=== PATIENT | female | born 1975 ===

== ENCOUNTER 2017-03-11 10:00 | Emergency (ER) | payer OTHER ==
[2017-03-11] MEDS ORDERED: DIPH,PERTUSS(ACELL),TET VAC/PF 0.5 ML VIAL IM ONE (10:49)
--- NOTE | 2017-03-11 11:19 | ER PHYSICIAN DOCUMENTATION ---
Physician Documentation [facility] Name:Kami Jon Age:42 yrs Sex:Female :1975 Arrival Date:03/11/2017 Time:10:00 BedRadiology Private MD: [place] Disposition: 03/11/17 11:07 Discharged to Home/Self Care. Impression: Foreign Body in Head. - Condition is Good. - Discharge Instructions: FOREIGN BODY, Soft Tissue [Not Removed]. - Medical Reconciliation form form. - Follow up: Private Physician; When: As needed; Reason: Continuance of care. - Problem is new. - Symptoms have improved. HPI: 03/11 11:49 This 42 yrs old Unknown Female presents to ER via Private Vehicle with complaints of jm Foreign Body - CHEEK. 11:49 The patient or guardian reports the patient has a suspected foreign body, L cheek. The jm reported likely foreign body is a fishhook. Onset: The symptom(s)/episode began/occurred just prior to arrival. Historical: - Allergies: No known drug Allergies; - Home Meds: 1. Xarelto 15 mg oral tab 1 tab twice a day for Deep Venous Thrombosis 2. Pepcid 20 mg oral tab 1 tab 2 times per day 3. acetaminophen 650 mg oral tab 1 tab every 6 hours for Pain - PMHx: DVT; - PSHx: Appendectomy; - Tetanus: > 10 years. - Ebola Screening: : Patient negative for fever greater than or equal to 101.5 degrees Fahrenheit, and additional compatible Ebola Virus Disease symptoms. Patient denies exposure to infectious person. Patient denies travel to an Ebola-affected area in the 21 days before illness onset. . - Immunization history: Flu Vaccine < 1 year. - Social history: Smoking status: Patient states was never smoker of tobacco. ROS: 11:49 Constitutional: Negative for fever. jm 11:49 Cardiovascular: Negative for chest pain, palpitations. 11:49 Skin: Positive for puncture. Exam: 11:49 Constitutional: The patient appears alert, awake. jm 11:49 Head/face: Noted is three hook fish hook in L cheek w 2 hooks inside. . Vital Signs: 10:10 BP 150 / 91; Pulse 101; Resp 16; Temp 98.4(TE); Pulse Ox 93% on R/A; Weight 58.06 kg; lp Height 5 ft. 3 in. (160.02 cm); Pain 0/10; 10:10 Body Mass Index 22.67 (58.06 kg, 160.02 cm) lp Procedures: 11:49 Foreign Body Removal: a fishhook, from the left left cheek, by using a hemostat, josué Dressing: bandiad, The patient tolerated the removal well, Only got one out. The other was left inside as it retracted in her cheek. MDM: 10:06 Patient medically screened. 11:49 Data reviewed: vital signs, nurses notes, radiologic studies, and as a result, I will jm discharge patient. Counseling: I had a detailed discussion with the patient and/or guardian regarding: the historical points, exam findings, and any diagnostic results supporting the discharge/admit diagnosis, the need for outpatient follow up, with the patient's primary care provider, an ENT specialist. Physician consultation: Dr. Levy regarding consult, States to leave in the hook and it will work its way out or she can get somebody to retrieve it at another time. . 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 Exp: 10/27/2018. Lot #: [id number]. } Route: IM; Site: left deltoid; 11:18 Follow up: Response: No adverse reaction; No change in condition lp Signatures: Celina Abel RN RN lp Meyer, John, MD MD jm
--- NOTE | 2017-03-11 11:19 | ER NURSING DOCUMENTATION ---
Nurse's Notes [facility] Name:Kami Jon Age:42 yrs Sex:Female :1975 Arrival Date:03/11/2017 Time:10:00 BedRadiology Private MD: Diagnosis:Foreign Body in Head Presentation: 03/11 10:08 Presenting complaint: Patient states: Fish hook in left cheek. Transition of care: Home.lp 10:08 Acuity: RADHA 4 lp 10:08 Method Of Arrival: Private Vehicle lp Triage Assessment: 10:32 General: Appears in no apparent distress, Behavior is appropriate for age. Pain: lp Complains of pain in left cheek. Derm: Skin has lesions on L cheek with fish hook. Historical: - Allergies: No known drug Allergies; - Home Meds: 1. Xarelto 15 mg oral tab 1 tab twice a day for Deep Venous Thrombosis 2. Pepcid 20 mg oral tab 1 tab 2 times per day 3. acetaminophen 650 mg oral tab 1 tab every 6 hours for Pain - PMHx: DVT; - PSHx: Appendectomy; - Tetanus: > 10 years. - Ebola Screening: : Patient negative for fever greater than or equal to 101.5 degrees Fahrenheit, and additional compatible Ebola Virus Disease symptoms. Patient denies exposure to infectious person. Patient denies travel to an Ebola-affected area in the 21 days before illness onset. . - Immunization history: Flu Vaccine < 1 year. - Social history: Smoking status: Patient states was never smoker of tobacco. Screenin:33 Infectious Disease Risk None. Abuse screen: Denies threats or abuse. Denies injuries lp from another. Nutritional screening: No deficits noted. Assessment: 10:32 See Triage Assessment done by same RN. lp Vital Signs: 10:10 BP 150 / 91; Pulse 101; Resp 16; Temp 98.4(TE); Pulse Ox 93% on R/A; Weight 58.06 kg; lp Height 5 ft. 3 in. (160.02 cm); Pain 0/10; 10:10 Body Mass Index 22.67 (58.06 kg, 160.02 cm) lp ED Course: 10:01 Patient arrived in ED. ama 10:06 [place] MD is Attending Physician. josué 10:08 Celina Abel RN is Primary Nurse. lp 10:09 Triage completed. lp 10:[address] Looney notified. lp 10:33 Valuables Remains with patient Patient has correct armband on for positive lp identification. Bed in low position. Call light in reach. 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 Exp: 10/27/2018. Lot #: [id number]. } Route: IM; Site: left deltoid; 11:18 Follow up: Response: No adverse reaction; No change in condition lp Outcome: 11:07 Discharge ordered by . josué 11:18 Discharged to home ambulatory. lp 11:18 Condition: good 11:18 Instructed on discharge instructions, follow up and referral plans. medication usage. 11:18 Patient left the ED. lp 03/12 16:36 Discharge F/U Call: Unable to reach: no answer nf Signatures: Galina Naik RN RN Celina Mims RN RN lp Meyer, John, MD MD jm Abbott, Laura lea Averdick, Andrew, Russ Reg ama
--- NOTE | 2017-03-11 13:08 | RADIOLOGY REPORT ---
REASON FOR EXAMINATION: Evaluate for foreign body. FINDINGS: A single galindo view of the skull demonstrates a 5 mm linear metallic foreign body projecting in the region of the left cheek, consistent with the known fish hook. No bony abnormality is identified. No other abnormality is identified. IMPRESSION: A 5 mm fish hook fragment projecting in the region of the left cheek. The finding was personally reviewed with Dr. Looney. MONTY
== END 2017-03-11 11:19 | disposition home or self-care (01) ==
LOC: ER 10:00
DX: S00.85XA Superficial foreign body of other part of head, initial encounter (principal); W45.8XXA Other foreign body or object entering through skin, initial encounter; Z23 Encounter for immunization; Z79.01 Long term (current) use of anticoagulants; Z86.718 Personal history of other venous thrombosis and embolism
CPT/HCPCS: 70250; 90471; 99283